=== PATIENT | male | born 1995 | race Caucasian/White ===

== ENCOUNTER 2017-11-07 21:57 | Emergency (ER) | payer BC, MEDICAID ==
[2017-11-07 22:08] VITALS: BP 161/91
--- NOTE | 2017-11-07 22:28 | ERNOTE ---
Time Seen by Provider: 11/07/17 21:59 Stated Complaint: SINUS PROBLEMS AND BACK PAIN Presenting Symptoms:: other Source: patient Exam Limitations: no limitations Immunizations: IMMUNIZATION HX Immunizations Up to Date Yes Allergies/Adverse Reactions: Allergies codeine Allergy (Verified 11/07/17 22:08) Other Home Medications: HOME MEDICATIONS Amox Tr/Potassium Clavulanate [Augmentin 875-125 Tablet] 875 mg PO Q12H #20 tab 11/07/17 [Last Taken Unknown] - History of Present Ilness Narrative: Patient states that he has had sinus pressure on and off for about three weeks, the pressure is mainly in the right maxillary area, denies any fever, sore throat a couple of days ago, minimal cough. A lot of people around him also have URI symptoms. He also started to have bilateral lower back pain earlier today, no radiation, no weakness, no injury, pain is constant and dull Timing: intermittent Severity: moderate Frequency/Possible Cause: Reports: occasional episodes Associated Symptoms: Reports: facial pain. Denies: shortness of breath, wheezing, earache Prior Treatment: Denies: recently seen, currently on antibiotics Review of Systems - Review of Systems Constitutional: Absent: fever ENT: Present: See HPI. Absent: ear pain Respiratory: Present: cough. Absent: shortness of breath Gastrointestinal/Abdominal: Absent: nausea, vomiting, abdominal pain Genitourinary: Present: no symptoms reported Musculoskeletal: Present: See HPI, back pain Neurological: Absent: weakness, numbness - Patient's Past Medical History Patient History - Medical: Kidney stone Patient History - Cardiac/Respiratory: No pertinent hx Patient History - Cancer: No Hx of Cancer Patient History - Surgical Procedures: Ear Tubes, T & A - Social History Living Situations: home Psych History: No pertinent hx Smoking Status: Current every day smoker Have you smoked in the past 12 months: Yes Alcohol Use: none Drug Use: none - Immunizations Immunizations Up to Date: Yes History of Influenza Vaccine: No Physical Exam - Physical Exam General Appearance: Present: wd/wn, alert, no apparent distress Head Exam: Present: normal inspection Eye Exam: Normal inspection: bilateral, PERRL: bilateral Ears, Nose, Throat: Present: normal ENT inspection, sinus pain/drainage - mils right maxillary, normal pharynx Neck: Absent: lymphadenopathy (R), lymphadenopathy (L) Respiratory: Present: no respiratory distress, normal breath sounds, no accessory muscle use, lungs clear Cardiovascular/Chest: Present: regular rate, rhythm, no murmur Back Exam: Present: normal inspection, no vertebral tenderness, other - mild tenderness bilateral lower back Extremity Exam: Present: normal inspection, other - no pain on straight leg raise bilateral Neurological Exam: Present: alert, oriented, normal mood/affect, no motor/ sensory deficits Skin Exam: Present: normal color, warm/dry ED Progress - Vital Signs Patient's Vital Signs:: I have reviewed the patient's vital signs. Vital Signs: Vital Signs 11/07/17 22:01 Temperature 36.8 C Pulse Rate 117 H Respiratory 16 Rate Blood Pressure 161/91 Departure Clinical Impression: Sinusitis Qualifiers: Sinusitis location: maxillary Chronicity: acute Recurrence: not specified as recurrent Qualified Code(s): J01.00 - Acute maxillary sinusitis, unspecified Back pain Qualifiers: Back pain location: low back pain Chronicity: acute Back pain laterality: bilateral Sciatica presence: without sciatica Qualified Code(s): M54.5 - Low back pain - Departure Disposition: Home self-care Condition: Good Instructions: Sinusitis, Adult, [id number] Additional Instructions: try over the counter nasal sprays like nasonex or flonase if you have no relieve over the next 2-3 days fill the prescription for the antibiotic take over the counter ibuprofen (200mg) three tablets every six hours as needed for your back pain Referrals: Lucio Ramos MD [Primary Care Provider] - Prescriptions: Amox Tr/Potassium Clavulanate [Augmentin 875-125 Tablet] 875 mg PO Q12H #20 tab
== END 2017-11-07 22:25 | disposition home or self-care (01) ==
LOC: ER 21:57
DX: M54.5 Low back pain (principal); J01.00 Acute maxillary sinusitis, unspecified; Z87.442 Personal history of urinary calculi; F17.200 Nicotine dependence, unspecified, uncomplicated